=== PATIENT | male | born 2000 | race African-American/Black ===

== ENCOUNTER 2021-09-14 19:04 | Emergency (ER) | payer OTHER ==
[~2021-09-14] VITALS: Ht 170.2 cm; Wt 59.0 kg
[2021-09-14 19:20] VITALS: TEMP 98
[2021-09-14 21:13] VITALS: BP 121/61
== END 2021-09-14 21:13 | disposition home or self-care (01) ==
LOC: ED 19:04
PROC: 0HQ1XZZ Repair Face Skin, External Approach (ICD-10-PCS; principal; 2021-09-14)
DX: S01.81XA Laceration without foreign body of other part of head, initial encounter (principal); W01.198A Fall on same level from slipping, tripping and stumbling with subsequent striking against other object, initial encounter; Y92.89 Other specified places as the place of occurrence of the external cause
CPT/HCPCS: 90471; 90715; 99283